=== PATIENT | female | born 1960 | race Caucasian/White ===

== ENCOUNTER → 2021-10-26 13:57 | Outpatient (BNVA) | payer OTHER, SELFPAY | PROVIDERS: PCP Internal Medicine; Referring Provider Internal Medicine; Visit Provider Physician Assistant | DX: E66.01 Morbid (severe) obesity due to excess calories (principal); Z68.43 Body mass index [BMI] 50.0-59.9, adult; Z98.84 Bariatric surgery status | CPT/HCPCS: 99202 ==

== ENCOUNTER 2023-06-12 09:48 | Outpatient (AMB) | payer OTHER, SELFPAY ==
--- NOTE | 2023-06-12 10:07 | A.OFFVIS_ITS ---
Vital Signs 06/12/23 10:10 Height 5 ft 7 in Weight 382 lb BMI 59.8 Intake Visit Reasons: abscess buttock Intake Note: Patient referred by Shayan Sarmiento PA-C for recurrent abscess on buttock. Hx of HS not on biologics. Patient c/o: abscess on mid buttock for 1 yrs. Reports current txt with BP wash, clindamycin lot, aclometasone oint keeping abscess under control. Advanced Manufacturing Technician Required: No Accompanied by: Self / Same As Patient Allergies doxycycline Allergy (Mild, Verified 06/12/23 10:14) Itching acetaminophen [ACETAMINOPHEN] Allergy (Unknown, Unverified 06/12/23 10:14) UNKNOWN codeine [CODEINE] Allergy (Unknown, Unverified 06/12/23 10:14) UNKNOWN erythromycin base [ERYTHROMYCIN BASE] Allergy (Unknown, Unverified 06/12/23 10:14) UNKNOWN hydrocodone [From VICODIN] Allergy (Unknown, Unverified 06/12/23 10:14) UNKNOWN mannitol [From RECLAST] Allergy (Unknown, Unverified 06/12/23 10:14) UNKNOWN oxycodone [OXYCODONE] Allergy (Unknown, Unverified 06/12/23 10:14) UNKNOWN tramadol Allergy (Unknown, Verified 06/12/23 10:14) Itching water for injection,sterile [From RECLAST] Allergy (Unknown, Unverified 06/12/23 10:14) UNKNOWN zoledronic acid [From RECLAST] Allergy (Unknown, Unverified 06/12/23 10:14) UNKNOWN Erythromycin Allergy (Unknown, Uncoded 06/12/23 10:14) Rash Hydrocodone-Ibuprofen Allergy (Unknown, Uncoded 06/12/23 10:14) Itching Percodan Allergy (Unknown, Uncoded 06/12/23 10:14) Itching HPI Comments Details: Patient presents for evaluation of 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 She has had sporadic areas of this ailment throughout her body but she has a persistent localized symptomatic area of the right buttock she wishes to have evaluated. Patient is wheelchair-bound, home O2. Chart was reviewed and patient evaluated. She takes Eliquis for a distant history of DVT and takes IM manjora for diabetes [facility] Medical History (Updated 10/26/21 @ 15:04 by Sujata Fairchild PA-C) History of revision of total replacement of right knee joint Hx of cataract Surgical History (Updated 06/12/23 @ 10:36 by Billy Linares MD) Hx of bladder endoscopy Hx of colonoscopy Hx of spinal surgery Hx of carpal tunnel repair Hx of gastric bypass Hx of cholecystectomy Hx of cervical discectomy Hx of lumpectomy Hx of tubal ligation History of 2 sections History of bunionectomy Hx of tonsillectomy Family History (Updated 10/26/21 @ 14:20 by Radha Lucas [facility]) Mother Diabetes Depression Heart problem Anxiety Hypertension High cholesterol Joint problem Stroke Father Hypertension Son Depression Anxiety ADHD Alcoholic Daughter No problems noted. Social History (Updated 10/26/21 @ 14:17 by Radha Lucas [facility]) Alcohol intake: never Patient Tobacco Use Status: Never used Tobacco Physical Exam Vital Signs: BMI result Body Mass Index 59.8 Const Other: Wheelchair bound very corpulent female Chest Other: Chest breath sounds bilaterally, HS 1 in 2 GI Other: Very corpulent abdomen with enormous pannus. Benign exam Back/Spine/Pelvis Other: Patient has an area measuring approximately 10 x 5 cm of the right mid buttock area demonstrating significant head retinitis suppurative changes. She has sporadic pockmarks throughout both buttocks but this is the main area of symptomatology. Assessment & Plan Assessment & Plan (1) Suppurative hidradenitis: Code(s): L73.2 - Hidradenitis suppurativa Category: Surgical Plan Risks, benefits, alternatives of wide local excision of this right buttock hidradenitis suppurative area were reviewed with the patient and included but not limited to bleeding, infection, recurrence, numbness, pain, scarring, wound dehiscence, seroma formation and the patient wishes to proceed. All questions answered. Arrangements made for this. In the meantime, her anticoagulation and Im diabetic med will need to be addressed prior to the procedure. Coding Level of Care Code New Pt Level 5 (50164) Diagnoses Suppurative hidradenitis L73.2
[2023-06-12 10:10] VITALS: BMI 59.8
== END 2023-06-12 10:36 | disposition home or self-care (01) ==
PROVIDERS: PCP Internal Medicine; Visit Provider Surgery
DX: L73.2 Hidradenitis suppurativa (principal)
CPT/HCPCS: 99204

== ENCOUNTER → 2023-06-12 09:48 | Outpatient (BNVA) | payer OTHER, SELFPAY | PROVIDERS: PCP Internal Medicine; Visit Provider Surgery | DX: L73.2 Hidradenitis suppurativa (principal) | CPT/HCPCS: 99202 ==

== ENCOUNTER 2023-11-30 08:45 | Day surgery (SDC) | payer OTHER, SELFPAY ==
[2023-11-15 12:48] VITALS: BMI 53.4
--- NOTE | 2023-11-29 11:51 | P.CONAN_ITS ---
Documented by User: Soraya Ashley NP 11/29/23 12:01 HPI - Anesthesia Eval Consult details Narrative: 63yo F for Right Wide Local Excision Hidradenitis suppurativa buttock LT. Lateral position Medically cleared for urologic procedure under GA by [facility] 09/2023 BREANNA with O2 QHS Eliquis for hx DVT/PE PMFSH Active Problems Active Problems: All Active Problems Suppurative hidradenitis (Acute) Morbid obesity (Acute) Hx of gastric bypass (Acute) Past Medical History Medical History (Updated 11/30/23 @ 09:34 by Annie Gregory MD) Charcot arthropathy Alcohol dependence in remission Osteoporosis BREANNA (obstructive sleep apnea) Nocturnal hypoxia Macular degeneration Lymphedema IBS (irritable bowel syndrome) Hypothyroid Elevated cholesterol Substance abuse HTN (hypertension) Diabetic neuropathy Diabetes DDD (degenerative disc disease), cervical Anxiety Anemia Cellulitis DVT (deep venous thrombosis) Pulmonary emboli Family History Family History Mother Diabetes Depression Heart problem Anxiety Hypertension High cholesterol Joint problem Stroke Father Hypertension Son Depression Anxiety ADHD Alcoholic Daughter No problems noted. Surgical History Surgical History Hx of cystoscopy History of revision of total knee arthroplasty History of bilateral knee replacement Hx of bilateral cataract extraction Hx of bladder endoscopy Hx of colonoscopy Hx of spinal surgery Hx of carpal tunnel repair Hx of gastric bypass Hx of cholecystectomy Hx of cervical discectomy Hx of lumpectomy Hx of tubal ligation History of 2 sections History of bunionectomy Hx of tonsillectomy Social History Social History Are you a primary care support representative to a significant other at home: No Do you presently have 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 If so, by whom?: No Spiritual Healthcare Practices: none Pentecostalism Healthcare Practices: Jewish Cultural Healthcare Practices: none Are you DNR?: Yes Advance Directives Information Provided: Yes (advised to bring copies DOS) Advance Directives on File: No Recently lost weight without trying: No Eating poorly because of decreased appetite: No Nutrition Risks: No Nutritional Risk FDLMP: n/a Poor oral hygiene: No Meds Allergies Allergy/AdvReac Type Severity Reaction Status Date / Time codeine [CODEINE] Allergy Intermediate Itching Verified 11/30/23 09:09 doxycycline Allergy Intermediate Itching Verified 11/30/23 09:09 erythromycin base Allergy Intermediate Rash Verified 11/30/23 09:09 [ERYTHROMYCIN BASE] hydrocodone [From VICODIN] Allergy Intermediate Itching Verified 11/30/23 09:09 lamotrigine Allergy Intermediate Itching Verified 11/30/23 09:09 oxycodone [OXYCODONE] Allergy Intermediate Itching Verified 11/30/23 09:09 tramadol Allergy Intermediate Itching Verified 11/30/23 09:09 ibuprofen AdvReac Intermediate cannot use Verified 11/30/23 09:09 due to gastric bypass surgery Home Medications ?Medication ?Instructions ?Recorded ?Confirmed ?Last Taken ?Type Oxygen Home Use 10/26/21 Unknown History acetaminophen 500 mg tablet 500 mg PO Q6H PRN Pain 10/26/21 11/15/23 Unknown History amlodipine 5 mg tablet 5 mg PO BEDTIME 10/26/21 11/30/23 11/29/23 History apixaban 5 mg tablet (Eliquis) 5 mg PO BID 10/26/21 11/30/23 11/27/23 History buspirone 15 mg tablet 15 mg PO TID 10/26/21 11/30/23 11/29/23 History calcium carbonate (Antacid Ext Str 300 mg PO BID 10/26/21 11/30/23 11/29/23 History (calcium carb)) clonazepam 2 mg tablet 2 mg PO BID 10/26/21 11/15/23 Unknown History clotrimazole 1 % topical cream 1 appl topical BID 10/26/21 11/15/23 Unknown History (Antifungal (clotrimazole)) escitalopram oxalate 20 mg tablet 20 mg PO DAILY 10/26/21 11/30/23 11/29/23 History furosemide 20 mg tablet 10 mg PO QAM 10/26/21 11/30/23 11/29/23 History hydroxyzine pamoate 50 mg capsule 50 mg PO QID PRN Anxiety 10/26/21 11/15/23 Unknown History levothyroxine 200 mcg capsule 200 mcg PO DAILY 10/26/21 11/30/23 11/30/23 History lisinopril 10 mg tablet 10 mg PO BEDTIME 10/26/21 11/30/23 11/29/23 History loperamide 2 mg capsule 2 mg PO Q6H PRN loose stools 10/26/21 11/15/23 Unknown History venlafaxine 150 mg tablet,extended 150 mg PO BID 10/26/21 11/30/23 11/29/23 History release 24 hr escitalopram oxalate 5 mg tablet 5 mg PO DAILY 11/15/23 11/30/23 11/29/23 History levothyroxine 75 mcg tablet 75 mcg PO DAILY 11/15/23 11/30/23 11/30/23 History dulaglutide 0.75 mg/0.5 mL 0.75 mg subcut QWEEK 11/29/23 11/30/23 11/22/23 History subcutaneous pen injector (Trulicity) Exam Height,Weight and Vital Signs: Height 5 ft 7 in Weight 154.675 kg Narrative Narrative: WBC9.4 k/mm306/19/2023 19:25 EDT RBC5.00 m/mm306/19/2023 19:25 EDT Hgb12.5 Gm/dL06/19/2023 19:25 EDT Hct39.7 %06/19/2023 19:25 EDT MCV79.4 ttycyobvxmd87/14/2024 19:25 EDT MCH25.0 pg06/19/2023 19:25 EDT MCHC31.5 g/dL06/19/2023 19:25 EDT Platelet Zewws329 k/mm306/19/2023 19:25 EDT RDW-SD46.3 nwnwlgpcdez82/14/2024 19:25 EDT MPV9.0 fegansgmjis03/14/2024 19:25 EDT Nucleated RBC (Automated)0.0 #/100 WBC'S006/19/2023 19:25 EDT Abs. NRBC0.0 k/mm306/19/2023 19:25 EDT Abs. Neut6.3 k/mm306/19/2023 19:25 EDT Abs. Lymph1.8 k/mm306/19/2023 19:25 EDT Abs. Mono1.0 k/mm306/19/2023 19:25 EDT Abs. Eo0.2 k/mm306/19/2023 19:25 EDT Abs. Baso0.1 k/mm306/19/2023 19:25 EDT Neut %67.0 %06/19/2023 19:25 EDT Lymph %19.4 %06/19/2023 19:25 EDT [place] %10.2 %06/19/2023 19:25 EDT Eos %2.3 %06/19/2023 19:25 EDT Baso %0.9 %06/19/2023 19:25 EDT Imm Gran0.2 %06/19/2023 19:25 EDT Abs. Imm Gran0.0 k/mm306/19/2023 19:25 EDT Hold Blue TopSPECIMEN DISCARDED AFTER 4 HOURS.06/19/2023 19:25 EDT Htckfi883 mmol/L06/26/2023 11:00 EDT Yjjlxo316 mmol/L06/19/2023 19:25 EDT Potassium4.4 mmol/L06/26/2023 11:00 EDT Potassium4.3 mmol/L06/19/2023 19:25 EDT Qaljllzj883 mmol/L06/26/2023 11:00 EDT Ccwryipa534 mmol/L06/19/2023 19:25 EDT Bicarbonate Level25 mmol/L06/26/2023 11:00 EDT Bicarbonate Level28 mmol/L06/19/2023 19:25 EDT Anion Gap14.0 mmol/L06/26/2023 11:00 EDT Anion Cyd66406/19/2023 19:25 EDT Glucose Level89 mg/dL06/26/2023 11:00 EDT Glucose Knysv625 mg/dL06/19/2023 19:25 EDT BUN14 mg/dL06/19/2023 19:25 EDT BUN12 mg/dL06/26/2023 11:00 EDT Creatinine-Blood0.74 mg/dL06/26/2023 11:00 EDT Creatinine-Blood0.91 mg/dL06/19/2023 19:25 EDT Estimated GFR Krailitdru01 ML/MIN/1.73 M206/26/2023 11:00 EDT Estimated GFR Phtixazpwh06 ML/MIN/1.73 M206/19/2023 19:25 EDT Calcium9.5 mg/dL06/26/2023 11:00 EDT Calcium9.3 mg/dL06/19/2023 19:25 EDT Phosphorus3.8 mg/dL06/26/2023 11:00 EDT Protein, Total6.9 g/dL06/26/2023 11:00 EDT Protein, Total7.6 Gm/dL06/19/2023 19:25 EDT Albumin3.9 g/dL06/26/2023 11:00 EDT Albumin3.8 Gm/dL06/19/2023 19:25 EDT AG Ratio1.305 11:00 EDT Alkaline Wmphhsulbje588 units/L06/19/2023 19:25 EDT Dvthaa72 units/L06/19/2023 19:25 EDT AST (SGOT)23 units/L06/19/2023 19:25 EDT ALT (SGPT)27 units/L06/19/2023 19:25 EDT Bilirubin, Total0.3 mg/dL06/19/2023 19:25 EDT Bilirubin, Direct<0.2 mg/dL06/19/2023 19:25 EDT 0 Bilirubin, IndirectDirect bilirubin is less than the measureable limit. Therefore, pmasfrni88/14/2024 19:25 EDT Lactate1.0 mmol/L06/19/2023 19:25 EDT Uric Acid4.5 mg/dL06/26/2023 11:00 EDT Globulin Total3.0 g/dL06/26/2023 11:00 EDT BUN/Creat Deasw4345/21/2024 11:00 EDT PTH, GehetpKED04/21/2024 11:00 EDT 25 OH-Vitamin D Level41.2 ng/mL 11:00 EDT Hold Green TopSPECIMEN DISCARDED AFTER 1 WEEK06/19/2023 19:25 EDT Collagen 1 C Fdmfwechojg979 pg/mL06/26/2023 11:00 EDT Hold Gel TopSPECIMEN DISCARDED AFTER 1 WEEK06/19/2023 19:25 EDT Urine Culture ResultsFinal pnhpwh8807/16/2023 09:31 EDT Urine Culture ResultsFinal qewyew0206/19/2023 22:40 EDT Appear/Color, UrineLIGHT TAOJLL3807/16/2023 09:31 EDT Appear/Color, SaaoxGRPKLI72/14/2024 22:40 EDT UuwfvelCGUZO00/10/2024 09:31 EDT BtawwzbWSGCFV36/14/2024 22:40 EDT0 Specific [place], Urine1.2697607/16/2023 09:31 EDT Specific [place], NkgekVCU03/05/2024 15:15 EDT Specific [place], Urine1.8614406/19/2023 22:40 EDT pH, Urine6.506 09:31 EDT pH, MjlyvVQE31/05/2024 15:15 EDT pH, Urine7.005 22:40 EDT Albumin, OumorMCTTPHQH90/10/2024 09:31 EDT Albumin, Urine1+06/19/2023 22:40 EDT Protein, JttupVZX87/05/2024 15:15 EDT Glucose, HarpqNYUOVFKJ27/10/2024 09:31 EDT Glucose, ClumxATD32/05/2024 15:15 EDT Glucose, XveecTXKLIERM83/14/2024 22:40 EDT Ketones, EiwhiNPNWCSKQ02/10/2024 09:31 EDT Ketones, KmzwtECF03/05/2024 15:15 EDT Ketones, BewaaMFTMIITH19/14/2024 22:40 EDT Bilirubin, DopyiBTUBTZCG31/10/2024 09:31 EDT Bilirubin, MvrflTEJGHMWG56/14/2024 22:40 EDT Hemoglobin, KmtsqSEJOAKGU29/10/2024 09:31 EDT Hemoglobin, Urine3+06/19/2023 22:40 EDT Nitrite, SvkqaLSQHWAOU74/10/2024 09:31 EDT Nitrite, TowwqFMXXRJDI81/14/2024 22:40 EDT Leukocyte, Urine3+07/16/2023 09:31 EDT Leukocyte, Urine3+06/19/2023 22:40 EDT PecrvbmdwfeyEHXMJU86/10/2024 09:31 EDT CsmndlbfhnjsNFNKCD63/14/2024 22:40 EDT WBC's, Urine86 /HPF07/16/2023 09:31 EDT WBC's, Jxkii421 /HPF06/19/2023 22:40 EDT RBC's, Urine2 /HPF07/16/2023 09:31 EDT RBC's, Urine35 /HPF06/19/2023 22:40 EDT WhcoccexHDMIMWYH84/14/2024 22:40 EDT Squamous Epith1 /HPF07/16/2023 09:31 EDT Squamous Epith5 /HPF06/19/2023 22:40 EDT Transitional Epith1 /[facility]06/19/2023 22:40 EDT XrajvNXPLSI73/14/2024 22:40 EDT Hold Urine CultureTesting available 48 hours from time of collection.06/19/2023 22:40 EDT Culture IndicationCULTURE UQFWXZJIZ19/10/2024 09:31 EDT Est Creatinine Beycebstg96.57 mL/min06/19/2023 19:58 EDT Urine Culture Specimen VjujfvPAPLM64/10/2024 09:31 EDT Urine Culture Specimen SourceURINE STRAIGHT CATH.06/19/2023 22:40 EDT Urine Culture Isolate 1Proteus arhygepxp19/10/2024 09:31 EDT Urine Culture Isolate 1Proteus zilhvunrh51/14/2024 22:40 EDT Urine Cult Antimicrobial GkkekcmudmzktoWvszofz76/10/2024 09:31 EDT Urine Cult Antimicrobial JlwmamdcobcytzPxooytz19/14/2024 22:40 EDT [id number] Ventricular Rate: 84 ?BPM Atrial Rate: 84 ?BPM P-R Interval: 174 ?ms QRS Duration: 100 ?ms Q-T Interval: 396 ?ms QTC Calculation(Bazett): 467 ?ms P Whitman: 2 ?degrees R Whitman: -36 ?degrees T Whitman: 42 ?degrees Normal sinus rhythm Left axis deviation Abnormal ECG When compared with ECG of 26-APR-2022 09:04, No significant change was found Confirmed by STAR [place], [facility] ([id number]) on 06/20/2023 10:17:23 AM Assessment and Plan Assessment Anesthesia Assessment: Chart Reviewed Documented by User: Annie Gregory MD 11/30/23 09:34 HPI - Anesthesia Eval Consult details Narrative: 63yo F for Wide Local Excision Hidradenitis suppurativa Right buttock Medically cleared for urologic procedure under [place] by [facility] 09/2023 BREANNA with O2 QHS Eliquis for hx DVT/PE PMFSH Active Problems Active Problems: All Active Problems Suppurative hidradenitis (Acute) Super Morbid obesity (Acute) Hx of gastric bypass (Acute) BREANNA. No machine yet Cbronic respiratory failure with nocturnal hypoxemia. On 2L 02 Past Medical History Medical History (Updated 11/30/23 @ 09:34 by Annie Gregory MD) Charcot arthropathy Alcohol dependence in remission Osteoporosis BREANNA (obstructive sleep apnea) Nocturnal hypoxia Macular degeneration Lymphedema IBS (irritable bowel syndrome) Hypothyroid Elevated cholesterol Substance abuse HTN (hypertension) Diabetic neuropathy Diabetes DDD (degenerative disc disease), cervical Anxiety Anemia Cellulitis DVT (deep venous thrombosis) Pulmonary emboli Family History Family History Mother Diabetes Depression Heart problem Anxiety Hypertension High cholesterol Joint problem Stroke Father Hypertension Son Depression Anxiety ADHD Alcoholic Daughter No problems noted. Family history of problems with anesthesia: No Surgical History Surgical History Hx of cystoscopy History of revision of total knee arthroplasty History of bilateral knee replacement Hx of bilateral cataract extraction Hx of bladder endoscopy Hx of colonoscopy Hx of spinal surgery Hx of carpal tunnel repair Hx of gastric bypass Hx of cholecystectomy Hx of cervical discectomy Hx of lumpectomy Hx of tubal ligation History of 2 sections History of bunionectomy Hx of tonsillectomy History of Problems with Anesthesia: No Social History Social History Are you a primary care support representative to a significant other at home: No Do you presently have 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 If so, by whom?: No Spiritual Healthcare Practices: none Pentecostalism Healthcare Practices: Jewish Cultural Healthcare Practices: none Are you DNR?: Yes Advance Directives Information Provided: Yes (advised to bring copies DOS) Advance Directives on File: No Recently lost weight without trying: No Eating poorly because of decreased appetite: No Nutrition Risks: No Nutritional Risk FDLMP: n/a Poor oral hygiene: No Meds Allergies Allergy/AdvReac Type Severity Reaction Status Date / Time codeine [CODEINE] Allergy Intermediate Itching Verified 11/30/23 09:09 doxycycline Allergy Intermediate Itching Verified 11/30/23 09:09 erythromycin base Allergy Intermediate Rash Verified 11/30/23 09:09 [ERYTHROMYCIN BASE] hydrocodone [From VICODIN] Allergy Intermediate Itching Verified 11/30/23 09:09 lamotrigine Allergy Intermediate Itching Verified 11/30/23 09:09 oxycodone [OXYCODONE] Allergy Intermediate Itching Verified 11/30/23 09:09 tramadol Allergy Intermediate Itching Verified 11/30/23 09:09 ibuprofen AdvReac Intermediate cannot use Verified 11/30/23 09:09 due to gastric bypass surgery Home Medications ?Medication ?Instructions ?Recorded ?Confirmed ?Last Taken ?Type Oxygen Home Use 10/26/21 Unknown History acetaminophen 500 mg tablet 500 mg PO Q6H PRN Pain 10/26/21 11/15/23 Unknown History amlodipine 5 mg tablet 5 mg PO BEDTIME 10/26/21 11/30/23 11/29/23 History apixaban 5 mg tablet (Eliquis) 5 mg PO BID 10/26/21 11/30/23 11/27/23 History buspirone 15 mg tablet 15 mg PO TID 10/26/21 11/30/23 11/29/23 History calcium carbonate (Antacid Ext Str 300 mg PO BID 10/26/21 11/30/23 11/29/23 History (calcium carb)) clonazepam 2 mg tablet 2 mg PO BID 10/26/21 11/15/23 Unknown History clotrimazole 1 % topical cream 1 appl topical BID 10/26/21 11/15/23 Unknown History (Antifungal (clotrimazole)) escitalopram oxalate 20 mg tablet 20 mg PO DAILY 10/26/21 11/30/23 11/29/23 History furosemide 20 mg tablet 10 mg PO QAM 10/26/21 11/30/23 11/29/23 History hydroxyzine pamoate 50 mg capsule 50 mg PO QID PRN Anxiety 10/26/21 11/15/23 Unknown History levothyroxine 200 mcg capsule 200 mcg PO DAILY 10/26/21 11/30/23 11/30/23 History lisinopril 10 mg tablet 10 mg PO BEDTIME 10/26/21 11/30/23 11/29/23 History loperamide 2 mg capsule 2 mg PO Q6H PRN loose stools 10/26/21 11/15/23 Unknown History venlafaxine 150 mg tablet,extended 150 mg PO BID 10/26/21 11/30/23 11/29/23 History release 24 hr escitalopram oxalate 5 mg tablet 5 mg PO DAILY 11/15/23 11/30/23 11/29/23 History levothyroxine 75 mcg tablet 75 mcg PO DAILY 11/15/23 11/30/23 11/30/23 History dulaglutide 0.75 mg/0.5 mL 0.75 mg subcut QWEEK 11/29/23 11/30/23 11/22/23 History subcutaneous pen injector (Trulicity) Exam Height,Weight and Vital Signs: Height 5 ft 7 in Weight 154.675 kg Vital Signs Temp Pulse Resp BP Pulse Ox O2 Del Method 11/30/23 09:18 97.7 F 78 16 124/71 94 Room Air Airway Mallampati Class: II TM Dist: >3cm Neck ROM: Full Loose/Missing/Broken Teeth: No (Patient denies) Heart: RRR Lungs: CTAB Assessment and Plan Assessment Anesthesia Assessment: Anesthesia Plan Discussed and Chart Reviewed Final Anesthetic Review Family History of Problems with Anesthesia: No History of Problems with Anesthesia: No NPO: Yes ASA Class: IV Final Preanesthetic Review: No Changes in Pt Med Stat, Meds/Allgs Chart Reviewed, Consent Obtained/Reviewed and Anes Risks/Benef Reviewed Patient Risk: High Procedure Risk: Low Assessment/Block/Sedation in SS: Assess/Block/Sedation-SS Anesthetic Plan Anesthetic Plan: GA and MAC: Disposition: Standard PACU and Extended PACU
--- NOTE | 2023-11-29 14:25 | MHC.SHP ---
Pre-Procedural Eval Section A - 24 Hr Update-Section A only Date of Service: 11/30/23 The patient is an INPATIENT: No Changes since office visit: No Cold of Flu in the past 2 weeks, No New Medical Problems, No Changes in Medication and No Patient answered all questions Section B - Complete if H&P > 30 days Chief Complaint: Hidradenitis suppurativa Allergies: Allergies Allergy/AdvReac Type Severity Reaction Status Date / Time codeine [CODEINE] Allergy Intermediate Itching Verified 11/15/23 12:17 doxycycline Allergy Intermediate Itching Verified 11/15/23 12:17 erythromycin base Allergy Intermediate Rash Verified 11/15/23 12:17 [ERYTHROMYCIN BASE] hydrocodone [From VICODIN] Allergy Intermediate Itching Verified 11/15/23 12:17 lamotrigine Allergy Intermediate Itching Verified 11/15/23 12:19 oxycodone [OXYCODONE] Allergy Intermediate Itching Verified 11/15/23 12:17 tramadol Allergy Intermediate Itching Verified 11/15/23 12:18 ibuprofen AdvReac Intermediate cannot use Verified 11/15/23 12:19 due to gastric bypass surgery Review of Systems Sugical H&P ROS: Negative: Constitution, Cardiovascular, Respiratory, Neurological, Psychiatric, Hem-Onc, Allergic/Immunologic, Gastrointestinal, Genitourinary, Musculoskeletal, Integumentary, Endocrine and Eyes/Ears/Nose/Throat Exam Surgical H&P Exam: Normal: HEENT, Normal: Heart, Normal: Lungs, Normal: Extremities, Normal: Abdomen, Normal: Skin and Normal: Neurological Plan I have reviewed the history and physical and performed a pertinent physical examination on my patient. No changes have occurred unless specified. Time Spent With Patient Time: Total time managing care of this patient today ____ minutes.
[2023-11-30 09:18] VITALS: BP 124/71; PULSE 78; RESP 16; TEMP 36.5; O2SAT 94
[2023-11-30] MEDS: Lactated Ringers 1,000 ML 100 ML IVCONT (09:19)
[2023-11-30 09:26] LABS: Glucose, Whole Blood 94 mg/dL (60-115)
[2023-11-30 11:28] VITALS: BP 102/68; PULSE 76; RESP 12; TEMP 36.1; O2SAT 97
--- NOTE | 2023-11-30 11:36 | W.PM.OPN ---
Operative Note Operative Note Date of Service: 11/30/23 Narrative: Preoperative diagnosis: [] Hidradenitis suppurativa right peritoneum area Postop diagnosis: [] The same Procedure [] wide local excision chronic/recurrent hidradenitis suppurativa right peritoneum Surgeon: [] [employer] Vice President: [] Type of Anesthesia: [] Mac Indication for surgery: [] Chronic recurrent hidradenitis suppurative right peritoneum Findings: [] Patient brought to the operating room, placed on operative table in supine position, after an adequate level of MAC anesthesia was induced, patient was placed in left lateral decubitus position. Using a combination of tape retraction and bed angulation, the right perineal area was prepped and draped in usual sterile fashion. Wound was infiltrated the beginning at the end with 1% lidocaine/0.5% Marcaine. A longitudinal by elliptical incision with dimensions approximately 15 x 10 cm of hidradenitis suppurativa diseased skin was uneventfully excised and undermined using Bovie. Specimen sent to pathology. Wound was irrigated, and secured hemostasis. Was closed in the following manner; interrupted inverted dermal 3-0 Vicryl sutures followed by Steri-Strips and sterile dressings were applied. 4x4s and ABD dressing and mesh panties then applied. Sponge, needle, and instrument counts reported correct. Patient tolerated the procedure well and emerged from anesthesia stable condition. EBL minimal
[2023-11-30 11:43] VITALS: BP 117/76; PULSE 70; RESP 16; TEMP 36.1; O2SAT 95
--- NOTE | 2023-11-30 12:43 | PM.EVENT ---
Event Note Date of Service: 11/30/23 Event Note: Called by PACU nurse to see patient who apparently lost her balance and ? fell while getting dressed to leave. Patient is postop from excision of Right buttock hidradenitis under MAC anesthesia with local by surgeon. Patient states that she let go of stretcher and lost her balance and her right ankle 'popped' and somehow ended up under her. She is c/o Right ankle pain and is unsure if she can bear weight on that ankle. I spoke with ER doctor and patient will be sent to ER for evaluation Time Spent With Patient Time: Total time managing care of this patient today ____ minutes.
== END 2023-11-30 12:34 | disposition home or self-care (01) ==
PROVIDERS: PCP Physician Assistant; Visit Provider Surgery
PROC: (CPT 11470; principal; 2023-11-30 10:10)
DX: L73.2 Hidradenitis suppurativa (principal); G47.33 Obstructive sleep apnea (adult) (pediatric); Z99.3 Dependence on wheelchair; Z86.718 Personal history of other venous thrombosis and embolism; Z86.711 Personal history of pulmonary embolism; M81.0 Age-related osteoporosis without current pathological fracture; E66.01 Morbid (severe) obesity due to excess calories; Z68.43 Body mass index [BMI] 50.0-59.9, adult; I10 Essential (primary) hypertension; I89.0 Lymphedema, not elsewhere classified; E78.00 Pure hypercholesterolemia, unspecified; E11.40 Type 2 diabetes mellitus with diabetic neuropathy, unspecified; J96.11 Chronic respiratory failure with hypoxia; F10.21 Alcohol dependence, in remission; F19.11 Other psychoactive substance abuse, in remission; Z96.653 Presence of artificial knee joint, bilateral; Z66 Do not resuscitate; Z79.85 Long-term (current) use of injectable non-insulin antidiabetic drugs; Z79.01 Long term (current) use of anticoagulants; Z79.899 Other long term (current) drug therapy; Z99.81 Dependence on supplemental oxygen; Z88.5 Allergy status to narcotic agent; Z88.8 Allergy status to other drugs, medicaments and biological substances; Z88.1 Allergy status to other antibiotic agents; Z98.84 Bariatric surgery status; Z98.890 Other specified postprocedural states; Z87.891 Personal history of nicotine dependence
CPT/HCPCS: 11470; 82947; 88304; 99499; J0131; J0690; J2003; J2250; J2704; J3010

== ENCOUNTER → 2023-11-30 08:45 | Outpatient (BNV) | payer OTHER, SELFPAY | PROVIDERS: PCP Physician Assistant; Visit Provider Surgery | DX: L73.2 Hidradenitis suppurativa (principal) | CPT/HCPCS: 11470 ==

== ENCOUNTER 2023-11-30 13:02 | Emergency (ER) | payer OTHER, SELFPAY ==
--- NOTE | ~2023-11-30 | XR_ITS ---
EXAMINATION: XR KNEE, RIGHT XR ANKLE, RIGHT XR FOOT, RIGHT CLINICAL INFORMATION: Pain following a fall. COMPARISON: None available. TECHNIQUE: AP, bilateral oblique, and lateral views of the right knee. AP, mortise, and lateral views of the right ankle. AP, oblique, and lateral views of the right foot. FINDINGS: RIGHT KNEE: Total right knee arthroplasty. No hardware fracture. No perihardware lucency to suggest loosening or infection. Patella baja which could indicate a quadriceps tendon injury. Correlate for focal tenderness and quadriceps weakness. No osseous fracture. Superolateral ossified loose body measuring up to 3.1 cm. No significant joint effusion. RIGHT ANKLE: Nondisplaced oblique distal fibular metaphyseal fracture without significant cortical step-off. Prominent overlying soft tissue swelling. No additional fracture. No dislocation. The ankle mortise is maintained. No joint space narrowing or marginal osteophytes. No osseous erosion. Dystrophic soft tissue calcifications. RIGHT FOOT: Mildly displaced, oblique fracture through the medial base of the first proximal phalanx contacting the first metatarsophalangeal joint with cortical step-off measuring up to 0.1 cm. No dislocation. Mild joint space narrowing with marginal osteophytes at the dorsal midfoot. No osseous erosion. Plantar calcaneal spur. XR/XR knee RT 3V IMPRESSION: RIGHT KNEE: Total right knee arthroplasty without evidence of hardware complication. Patella baja which could indicate a quadriceps tendon injury. Correlate for focal tenderness and quadriceps weakness. RIGHT ANKLE: Nondisplaced oblique distal fibular fracture. Prominent overlying soft tissue swelling. RIGHT FOOT: Mildly displaced, oblique fracture through the medial base of the first proximal phalanx contacting the first metatarsophalangeal joint with cortical step-off measuring up to 0.1 cm. Mild degenerative arthritis at the dorsal midfoot. Plantar calcaneal spur. Electronically signed by: Louie Barry MD 11/30/2023 04:32 PM EDT
--- NOTE | ~2023-11-30 | XR_ITS ---
EXAMINATION: XR KNEE, RIGHT XR ANKLE, RIGHT XR FOOT, RIGHT CLINICAL INFORMATION: Pain following a fall. COMPARISON: None available. TECHNIQUE: AP, bilateral oblique, and lateral views of the right knee. AP, mortise, and lateral views of the right ankle. AP, oblique, and lateral views of the right foot. FINDINGS: RIGHT KNEE: Total right knee arthroplasty. No hardware fracture. No perihardware lucency to suggest loosening or infection. Patella baja which could indicate a quadriceps tendon injury. Correlate for focal tenderness and quadriceps weakness. No osseous fracture. Superolateral ossified loose body measuring up to 3.1 cm. No significant joint effusion. RIGHT ANKLE: Nondisplaced oblique distal fibular metaphyseal fracture without significant cortical step-off. Prominent overlying soft tissue swelling. No additional fracture. No dislocation. The ankle mortise is maintained. No joint space narrowing or marginal osteophytes. No osseous erosion. Dystrophic soft tissue calcifications. RIGHT FOOT: Mildly displaced, oblique fracture through the medial base of the first proximal phalanx contacting the first metatarsophalangeal joint with cortical step-off measuring up to 0.1 cm. No dislocation. Mild joint space narrowing with marginal osteophytes at the dorsal midfoot. No osseous erosion. Plantar calcaneal spur. XR/XR ankle RT min 3V IMPRESSION: RIGHT KNEE: Total right knee arthroplasty without evidence of hardware complication. Patella baja which could indicate a quadriceps tendon injury. Correlate for focal tenderness and quadriceps weakness. RIGHT ANKLE: Nondisplaced oblique distal fibular fracture. Prominent overlying soft tissue swelling. RIGHT FOOT: Mildly displaced, oblique fracture through the medial base of the first proximal phalanx contacting the first metatarsophalangeal joint with cortical step-off measuring up to 0.1 cm. Mild degenerative arthritis at the dorsal midfoot. Plantar calcaneal spur. Electronically signed by: Louie Barry MD 11/30/2023 04:32 PM EDT
[2023-11-30 13:19] VITALS: BP 118/57; PULSE 77; RESP 18; TEMP 36.6; O2SAT 97; BMI 52.9
--- NOTE | 2023-11-30 13:49 | PC.NURSE ---
patient transfer from [facility], for witnessed slow fall from standing to ground while getting dressing and transfer to wheelchair. patient currently endorses pain to right knee and right ankle.
--- NOTE | 2023-11-30 14:23 | ED_ITS ---
HPI - Extremity Injury (Lower) General Chief Complaint: Extremity Injury, Lower Stated Complaint: r ankle pain Time Seen by Provider: 11/30/23 14:07 Source: patient, RN notes reviewed and old records reviewed Mode of arrival: wheelchair History of Present Illness ED Provider: Sarah Beth Dong PA-C HPI Narrative: 63-year-old female with a past medical history of morbid obesity, s/p gastric bypass, hidradenitis suppurativa s/p right peritoneal local excision in the OR by Dr. Vijay GAYLE, presenting to the ED from PACU s/p patient was lower to floor after she could not hold herself up any longer. States she was getting dressed after procedure and needed assistance getting undergarments on, was leaning against stretcher with staff member helping however knew she could no longer hold herself up, staff member lowered her to the ground. Now reports right knee, ankle and foot pain. At baseline ambulates with walker. Denies head trauma or LOC. Denies injury to other area. Per daughter patient is a 2 patient transfer Related Data Home Medications ?Medication ?Instructions ?Recorded ?Confirmed Oxygen Home Use 10/26/21 acetaminophen 500 mg tablet 500 mg PO Q6H PRN Pain 10/26/21 11/15/23 amlodipine 5 mg tablet 5 mg PO BEDTIME 10/26/21 11/30/23 apixaban 5 mg tablet (Eliquis) 5 mg PO BID 10/26/21 11/30/23 buspirone 15 mg tablet 15 mg PO TID 10/26/21 11/30/23 calcium carbonate (Antacid Ext Str 300 mg PO BID 10/26/21 11/30/23 (calcium carb)) clonazepam 2 mg tablet 2 mg PO BID 10/26/21 11/15/23 clotrimazole 1 % topical cream 1 appl topical BID 10/26/21 11/15/23 (Antifungal (clotrimazole)) escitalopram oxalate 20 mg tablet 20 mg PO DAILY 10/26/21 11/30/23 furosemide 20 mg tablet 10 mg PO QAM 10/26/21 11/30/23 hydroxyzine pamoate 50 mg capsule 50 mg PO QID PRN Anxiety 10/26/21 11/15/23 levothyroxine 200 mcg capsule 200 mcg PO DAILY 10/26/21 11/30/23 lisinopril 10 mg tablet 10 mg PO BEDTIME 10/26/21 11/30/23 loperamide 2 mg capsule 2 mg PO Q6H PRN loose stools 10/26/21 11/15/23 venlafaxine 150 mg tablet,extended 150 mg PO BID 10/26/21 11/30/23 release 24 hr escitalopram oxalate 5 mg tablet 5 mg PO DAILY 11/15/23 11/30/23 levothyroxine 75 mcg tablet 75 mcg PO DAILY 11/15/23 11/30/23 dulaglutide 0.75 mg/0.5 mL 0.75 mg subcut QWEEK 11/29/23 11/30/23 subcutaneous pen injector (Trulicity) Previous Rx's ?Medication ?Instructions ?Recorded morphine 15 mg immediate release 15 mg PO Q6H PRN pain #14 tabs 11/30/23 tablet morphine 15 mg immediate release 30 mg (2 x 15 mg) PO Q8H PRN pain 11/30/23 tablet #14 tabs Allergies Allergy/AdvReac Type Severity Reaction Status Date / Time codeine [CODEINE] Allergy Intermediate Itching Verified 11/30/23 13:26 doxycycline Allergy Intermediate Itching Verified 11/30/23 13:26 erythromycin base Allergy Intermediate Rash Verified 11/30/23 13:26 [ERYTHROMYCIN BASE] hydrocodone [From VICODIN] Allergy Intermediate Itching Verified 11/30/23 13:26 lamotrigine Allergy Intermediate Itching Verified 11/30/23 13:26 oxycodone [OXYCODONE] Allergy Intermediate Itching Verified 11/30/23 13:26 tramadol Allergy Intermediate Itching Verified 11/30/23 13:26 ibuprofen AdvReac Intermediate cannot use Verified 11/30/23 13:26 due to gastric bypass surgery Review of Systems Review of Systems: Yes all other systems are reviewed and are negative Constitutional: Constitutional: Reports as per [facility] Past Medical History Attestation statement: The following information was validated with the patient. Source: old records reviewed Medical History Charcot arthropathy Alcohol dependence in remission Osteoporosis BREANNA (obstructive sleep apnea) Nocturnal hypoxia Macular degeneration Lymphedema IBS (irritable bowel syndrome) Hypothyroid Elevated cholesterol Substance abuse HTN (hypertension) Diabetic neuropathy Diabetes DDD (degenerative disc disease), cervical Anxiety Anemia Cellulitis DVT (deep venous thrombosis) Pulmonary emboli Surgical History Hx of cystoscopy History of revision of total knee arthroplasty History of bilateral knee replacement Hx of bilateral cataract extraction Hx of bladder endoscopy Hx of colonoscopy Hx of spinal surgery Hx of carpal tunnel repair Hx of gastric bypass Hx of cholecystectomy Hx of cervical discectomy Hx of lumpectomy Hx of tubal ligation History of 2 sections History of bunionectomy Hx of tonsillectomy Family History Family History Mother Diabetes Depression Heart problem Anxiety Hypertension High cholesterol Joint problem Stroke Father Hypertension Son Depression Anxiety ADHD Alcoholic Daughter No problems noted. 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) Alcohol intake: never Patient Tobacco Use Status: Former Tobacco user Tobacco use type: Cigarette Years Smoked: 25 Advance Directives: Yes Advance Directives Information Provided: Yes Advance Directives on File: No Physical Exam Vital Signs: Vital Signs: Last Vital Signs Temp 97.4 F 11/30/23 17:06 Pulse 75 11/30/23 17:06 Resp 18 11/30/23 17:06 BP 106/78 11/30/23 17:06 Pulse Ox 97 11/30/23 17:06 O2 Del Method Room Air 11/30/23 17:06 BMI result Body Mass Index 52.9 Const: General: cooperative, healthy appearing and no acute distress Orientation/consciousness: patient oriented x3 Limitations: no limitations HEENT: Head: Yes normal to inspection and Yes atraumatic Ears: hearing grossly normal bilaterally General nose exam: Normal external nose present Face and sinus: Yes normal facial exam Eyes: General: appearance normal, both eyes and all related structures EOM: EOMs intact bilaterally Neck: Neck: Yes normal visual inspection and Yes no meningeal signs Resp: Effort & Inspection: normal respiratory effort and no respiratory distress Auscultation: clear to auscultation bilaterally Cardio: Rate: regular rate Skin: Rashes: no rashes Wounds: no wounds Neuro: General: patient oriented x3, tone normal and no meningeal signs Cranial nerves: Yes CN's II-XII intact bilaterally Gait exam (Neuro): Normal gait present Extrem: Other: Right knee with mild swelling. Diffusely tender to palpation. ROM intact with discomfort. Right ankle with appreciable swelling. Diffusely tender to palpation. Foot appears chronically swollen. Proximal tenderness noted. Neurovascularly intact. No erythema/warmth or crepitus Course Course Course Narrative: -1500--ED care transferred to [place] [facility] pending x-rays and dispo per results X-rays of knee ankle and foot had to findings Knee x-ray no acute abnormality showing an intact right knee arthroplasty The right ankle had a nondisplaced distal fibula fracture with soft tissue swelling The foot x-ray showed a mildly displaced oblique fracture through the base of the 1st proximal phalanx with a cortical step-off measuring 0.1 cm Patient has her own wheelchair already as well as a walker at home and she is given a walker boot and analgesics medication and is discharged to follow with orthopedics She is given a copy of her x-ray report and is aware of the findings and the need for follow-up Medications Administered Discontinued Medications Generic Name Dose Route Start Last Admin Trade Name Freq PRN Reason Stop Dose Admin Acetaminophen 650 mg 11/30/23 14:13 11/30/23 15:05 Acetaminophen 325 Mg Tablet PO 11/30/23 14:14 650 mg ONCE ONE Administration Morphine Sulfate 4 mg 11/30/23 16:58 11/30/23 17:03 Morphine Sulfate 4 Mg/Ml Cartridge IM 11/30/23 16:59 4 mg ONCE ONE Administration Protocol Medical Decision Making Medical Decision Making [facility] Narrative: 63-year-old female with a past medical history of morbid obesity, s/p gastric bypass, hidradenitis suppurativa s/p right peritoneal local excision in the OR by Dr. Vijay GAYLE, presenting to the ED from PACU complaining of right knee, foot, and ankle pain s/p patient was lower to floor after she could not hold herself up any longer. Denies head trauma or LOC. at baseline ambulates with walker. Concern for strain vs fracture. No evidence of septic joint/arthritis Plan: X-rays, pain control Please refer to course for remaining clinical decision making, interpretation of labs/imaging results, and discussions with consultants and/or family members. Differential Diagnosis Differential Diagnoses: The differential diagnosis associated with the presentation includes As above Independent Interpretation I performed an independent interpretation of an: Plain X-Ray Radiology Impression Discussion of test interpretation with radiology: I have reviewed the radiologist's reading. External Record Review External record reviewed: Inpatient record, Office record, Outpatient record, Prior outpatient labs, Prior outpatient radiology, Primary care record and Outside ED record Tests considered The following testing was considered but not selected: As above Prescription Management I considered prescription management with: Pain Medication Chronic Conditions Patient?s care impacted by: Other (Obesity s/p gastric bypass surgery) Social Determinants Patient?s care significantly limited by Social Determinants of Health including: Problems related to primary support group and Other Social Determinant of Health Discharge Plan Discharge Clinical Impression: Closed fibular fracture, Fractured great toe Patient Disposition: Still a Patient Additional Instructions: X-ray showed a nondisplaced fracture of the tibia in the ankle area as well as a fracture at the base of the big toe Follow closely with orthopedist to figure best plan of treatment for these injuries Return any time any concerns Prescriptions: New morphine 15 mg tablet 30 mg PO Q8H PRN (Reason: pain) Qty: 14 0RF Rx Instructions: Partial Fill upon patient request. morphine 15 mg tablet 15 mg PO Q6H PRN (Reason: pain) Qty: 14 0RF Rx Instructions: Partial Fill upon patient request. No Action levothyroxine 75 mcg Tablet 75 mcg PO DAILY escitalopram oxalate 5 mg Tablet 5 mg PO DAILY Trulicity 0.75 mg/0.5 mL pen injector 0.75 mg subcut QWEEK Eliquis 5 mg tablet 5 mg PO BID clonazepam 2 mg tablet 2 mg PO BID buspirone 15 mg tablet 15 mg PO TID levothyroxine 200 mcg capsule 200 mcg PO DAILY lisinopril 10 mg tablet 10 mg PO BEDTIME hydroxyzine pamoate 50 mg capsule 50 mg PO QID PRN (Reason: Anxiety) clotrimazole [Antifungal (clotrimazole)] 1 % cream 1 appl topical BID furosemide 20 mg tablet 10 mg PO QAM venlafaxine 150 mg tablet extended release 24hr 150 mg PO BID (DME) Oxygen Home Use Kit See Rx Instructions .Route Rx Instructions: As directed escitalopram oxalate 20 mg tablet 20 mg PO DAILY amlodipine 5 mg tablet 5 mg PO BEDTIME calcium carbonate [Antacid Ext Str (calcium carb)] 300 mg (750 mg) tablet,chewable 300 mg PO BID loperamide 2 mg capsule 2 mg PO Q6H PRN (Reason: loose stools) acetaminophen 500 mg tablet 500 mg PO Q6H PRN (Reason: Pain) Referrals: Armando Condon MD [Physician] - (Ankle and toe fracture) Interventions: ED Discharge Assessment Last Done: 11/30/23 17:06 Discharge Date/Time: 11/30/23 17:08 Print Language: Bulgarian
[2023-11-30] MEDS: Acetaminophen 325 MG TABLET 650 MG PO (15:05)
[2023-11-30 16:06] VITALS: BP 100/57; PULSE 70; RESP 18; TEMP 36.2; O2SAT 95
[2023-11-30] MEDS: Morphine Sulfate 4 MG/ML CARTRIDGE IM (17:03)
[2023-11-30 17:06] VITALS: BP 106/78; PULSE 75; RESP 18; TEMP 36.3; O2SAT 97
== END 2023-11-30 17:08 | disposition home or self-care (01) ==
PROVIDERS: Emergency Provider Emergency Medicine Emergency Medical Services; PCP Physician Assistant
DX: S82.401A Unspecified fracture of shaft of right fibula, initial encounter for closed fracture (principal); S92.401A Displaced unspecified fracture of right great toe, initial encounter for closed fracture; M79.604 Pain in right leg; M79.671 Pain in right foot; W01.0XXA Fall on same level from slipping, tripping and stumbling without subsequent striking against object, initial encounter; Y93.89 Activity, other specified; Y92.238 Other place in hospital as the place of occurrence of the external cause; Y99.8 Other external cause status; Z79.899 Other long term (current) drug therapy; Z87.891 Personal history of nicotine dependence
CPT/HCPCS: 73562; 73610; 73630; 96372; 99283; 99284; J2270

== ENCOUNTER 2023-12-11 12:39 | Outpatient (AMB) | payer OTHER, SELFPAY ==
[2023-12-11 12:45] VITALS: BMI 52.9
--- NOTE | 2023-12-11 12:45 | MHC.OFFVIS ---
Vital Signs 12/11/23 12:45 Height 5 ft 7 in Weight 338 lb BMI 52.9 Intake Visit Reasons: S/P hidradenitis suppurativa Rt buttock Intake Note: Patient here s/p hidradenitis suppurativa on rt buttock. Patient c/o: reports no complaints at this time. 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 Accompanied by: Self / Same As Patient Allergies codeine [CODEINE] Allergy (Intermediate, Verified 12/11/23 12:51) Itching doxycycline Allergy (Intermediate, Verified 12/11/23 12:51) Itching erythromycin base [ERYTHROMYCIN BASE] Allergy (Intermediate, Verified 12/11/23 12:51) Rash hydrocodone [From VICODIN] Allergy (Intermediate, Verified 12/11/23 12:51) Itching lamotrigine Allergy (Intermediate, Verified 12/11/23 12:51) Itching oxycodone [OXYCODONE] Allergy (Intermediate, Verified 12/11/23 12:51) Itching tramadol Allergy (Intermediate, Verified 12/11/23 12:51) Itching ibuprofen Adverse Reaction (Intermediate, Verified 12/11/23 12:51) cannot use due to gastric bypass surgery HPI Comments Details: Patient presents for follow-up for perineal wound. Pathology was benign. She had a setback where she fell and sustained a fibular fracture. She also had opened /dehisced her wound most likely related to her fall and marked corpulence. [facility] Medical History Charcot arthropathy Alcohol dependence in remission Osteoporosis BREANNA (obstructive sleep apnea) Nocturnal hypoxia Macular degeneration Lymphedema IBS (irritable bowel syndrome) Hypothyroid Elevated cholesterol Substance abuse HTN (hypertension) Diabetic neuropathy Diabetes DDD (degenerative disc disease), cervical Anxiety Anemia Cellulitis DVT (deep venous thrombosis) Pulmonary emboli Surgical History Hx of cystoscopy History of revision of total knee arthroplasty History of bilateral knee replacement Hx of bilateral cataract extraction Hx of bladder endoscopy Hx of colonoscopy Hx of spinal surgery Hx of carpal tunnel repair Hx of gastric bypass Hx of cholecystectomy Hx of cervical discectomy Hx of lumpectomy Hx of tubal ligation History of 2 sections History of bunionectomy Hx of tonsillectomy Family History Mother Diabetes Depression Heart problem Anxiety Hypertension High cholesterol Joint problem Stroke Father Hypertension Son Depression Anxiety ADHD Alcoholic Daughter No problems noted. 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 Wound is granulating. No evidence of any infective process. Some serous exudate. Assessment & Plan Assessment & Plan (1) Postoperative wound dehiscence: Code(s): T81.31XA - Disruption of external operation (surgical) wound, not elsewhere classified, initial encounter Category: Surgical Plan Arrangements were made for [facility] for local wound care. Transportation is a very challenging issue for the patient and we will see her in a few weeks time for follow-up. She has been given local instructions including may shower daily with dressing changes and will see me as directed or p.r.n.. All questions answered Coding Level of Care Code Global (64450) Diagnoses Postoperative wound dehiscence T81.31XA
== END 2023-12-11 13:12 | disposition home or self-care (01) ==
LOC: HO.HGS 12:40
PROVIDERS: PCP Physician Assistant; Visit Provider Surgery
DX: T81.31XA Disruption of external operation (surgical) wound, not elsewhere classified, initial encounter (principal)
CPT/HCPCS: 99024

== ENCOUNTER → 2023-12-11 12:39 | Outpatient (BNVA) | payer OTHER, SELFPAY | PROVIDERS: PCP Physician Assistant; Visit Provider Surgery | DX: T81.31XA Disruption of external operation (surgical) wound, not elsewhere classified, initial encounter (principal); L73.2 Hidradenitis suppurativa | CPT/HCPCS: 99212 ==

== ENCOUNTER 2024-01-28 11:43 | Outpatient (AMB) | payer OTHER, SELFPAY ==
--- NOTE | 2024-01-28 11:56 | MHC.OFFVIS ---
Vital Signs 01/28/24 11:57 Weight 346 lb 12.594 oz Intake Visit Reasons: 1 month follow up hidradenitis buttock Intake Note: Patient here for 2m s/p hidradenitis suppurative rt peritoneum. Patient denies any issues for today. 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 Accompanied by: Self / Same As Patient Allergies codeine [CODEINE] Allergy (Intermediate, Verified 12/11/23 12:51) Itching doxycycline Allergy (Intermediate, Verified 12/11/23 12:51) Itching erythromycin base [ERYTHROMYCIN BASE] Allergy (Intermediate, Verified 12/11/23 12:51) Rash hydrocodone [From VICODIN] Allergy (Intermediate, Verified 12/11/23 12:51) Itching lamotrigine Allergy (Intermediate, Verified 12/11/23 12:51) Itching oxycodone [OXYCODONE] Allergy (Intermediate, Verified 12/11/23 12:51) Itching tramadol Allergy (Intermediate, Verified 12/11/23 12:51) Itching ibuprofen Adverse Reaction (Intermediate, Verified 12/11/23 12:51) cannot use due to gastric bypass surgery HPI Comments Details: Patient presents for follow-up status post perineal hidradenitis suppurativa excision with partial wound dehiscence secondary to a unexpected fall postoperatively. Patient was been undergoing local wound care with [facility] services. She presents here for wound evaluation. She states that she has been told that her wound is doing well. [facility] Medical History Charcot arthropathy Alcohol dependence in remission Osteoporosis BREANNA (obstructive sleep apnea) Nocturnal hypoxia Macular degeneration Lymphedema IBS (irritable bowel syndrome) Hypothyroid Elevated cholesterol Substance abuse HTN (hypertension) Diabetic neuropathy Diabetes DDD (degenerative disc disease), cervical Anxiety Anemia Cellulitis DVT (deep venous thrombosis) Pulmonary emboli Surgical History Hx of cystoscopy History of revision of total knee arthroplasty History of bilateral knee replacement Hx of bilateral cataract extraction Hx of bladder endoscopy Hx of colonoscopy Hx of spinal surgery Hx of carpal tunnel repair Hx of gastric bypass Hx of cholecystectomy Hx of cervical discectomy Hx of lumpectomy Hx of tubal ligation History of 2 sections History of bunionectomy Hx of tonsillectomy Family History Mother Diabetes Depression Heart problem Anxiety Hypertension High cholesterol Joint problem Stroke Father Hypertension Son Depression Anxiety ADHD Alcoholic Daughter No problems noted. 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 There was a small area smaller than the tip of a Q-tip which is granulating in and the rest of the wound has completely healed. Assessment & Plan Assessment & Plan (1) Visit for wound check: Code(s): Z51.89 - Encounter for other specified aftercare Category: Surgical Plan I am delighted that the patient has achieved wound healing. All questions answered. She has been given local instructions and will otherwise follow-up p.r.n.. [facility] services no longer required Coding Level of Care Code Complex EM visit Add On G2211 Diagnoses Visit for wound check Z51.89
== END 2024-01-28 12:03 | disposition home or self-care (01) ==
PROVIDERS: PCP Physician Assistant; Visit Provider Surgery
DX: Z51.89 Encounter for other specified aftercare (principal)
CPT/HCPCS: 99024

== ENCOUNTER → 2024-01-28 11:43 | Outpatient (BNVA) | payer OTHER, SELFPAY | PROVIDERS: PCP Physician Assistant; Visit Provider Surgery | DX: Z48.817 Encounter for surgical aftercare following surgery on the skin and subcutaneous tissue (principal); L73.2 Hidradenitis suppurativa | CPT/HCPCS: 99212 ==